=== PATIENT | male | born 1995 | race Hispanic/Latino ===

== ENCOUNTER 2020-04-08 07:26 | Day surgery (SDC) | payer OTHER ==
[2020-04-06 11:19] LABS: BASOPHILS % (AUTO) 0.6 % (0.0-5.0); EOSINOPHILS % (AUTO) 1.5 % (0.0-8.0); HEMATOCRIT 47.3 % (42-54); LYMPHOCYTES % (AUTO) 27.4 % (21.0-51.0); MEAN CORPUSCULAR HEMOGLOBIN 29.8 pg (27.0-33.0); MEAN CORPUSCULAR HGB CONC 34.2 g/dL (32.0-36.0); MEAN CORPUSCULAR VOLUME 87.1 fL (79-99); MONOCYTES % (AUTO) 6.4 % (3.0-13.0); NEUTROPHILS % (AUTO) 64.1 % (40.0-77.0); PLATELET COUNT (AUTO) 214 K/uL (130-400); RED BLOOD CELL COUNT(AUTO) 5.43 MIL/uL (4.50-6.20); RED CELL DISTRIBUTION WIDTH 12.2 % (11.0-15.5); WHITE BLOOD COUNT (AUTO) 6.9 K/uL (4.8-10.8)
[2020-04-06 11:37] LABS: CREATININE 1.2 mg/dL (0.5-1.5); POTASSIUM 4.1 mmol/L (3.5-5.1)
[2020-04-07 12:54] VITALS: BP 142/82
[~2020-04-08] VITALS: Ht 177.8 cm; Wt 125.0 kg
[2020-04-08] VITALS (16 sets, daily range): BP systolic 119–146; BP diastolic 60–99
[2020-04-08] MEDS ORDERED: LACTATED RINGERS 1000ML 1,000 ML IV SCH (08:00)
[2020-04-08] MEDS: CEFAZOLIN SODIUM 1 GM VIAL IVP ONE ×2 (08:03→09:50)
[2020-04-08] MEDS ORDERED: PROPOFOL 10 MG/ML 20ML VIAL IV ONE (09:03)
[2020-04-08] MEDS ORDERED: DEXAMETHASONE SOD PHOSPHATE 10MG/ML 1ML VIAL ONE (09:03)
[2020-04-08] MEDS ORDERED: LIDOCAINE PF 100MG/5ML (2%) SYRINGE 5ML ONE ×2 (09:03→11:39)
[2020-04-08] MEDS ORDERED: MIDAZOLAM HCL 1 MG/ML 2ML VIAL ONE (09:04)
[2020-04-08] MEDS ORDERED: ONDANSETRON 4MG INJ ONE (09:04)
[2020-04-08] MEDS ORDERED: MEPERIDINE-PF 25 MG/ML SYG ONE ×2 (09:04→12:08)
[2020-04-08] MEDS ORDERED: FENTANYL CITRATE PF 50 MCG/1 ML 2ML VIAL ONE ×3 (09:04→11:51)
[2020-04-08] MEDS ORDERED: SUCCINYLCHOLINE CHLORIDE 20 MG/ML 10 ML VIAL ONE (09:05)
[2020-04-08] MEDS ORDERED: ROPIVACAINE 0.5% 5MG/ML 30ML IJ ONE (09:19)
[2020-04-08] MEDS ORDERED: CEFAZOLIN SODIUM 1 GM VIAL ONE (09:45)
[2020-04-08] MEDS ORDERED: KETOROLAC 30MG VIAL (30MG/ML) ONE (11:40)
== END 2020-04-08 13:40 | disposition home or self-care (01) ==
LOC: DAH 07:26
PROVIDERS: ATTEND Orthopaedic Surgery
DX: Z20.828 Contact with and (suspected) exposure to other viral communicable diseases (principal); S83.512A Sprain of anterior cruciate ligament of left knee, initial encounter; S83.272A Complex tear of lateral meniscus, current injury, left knee, initial encounter; S83.242A Other tear of medial meniscus, current injury, left knee, initial encounter; E66.9 Obesity, unspecified; F17.200 Nicotine dependence, unspecified, uncomplicated; Z72.89 Other problems related to lifestyle; Z98.890 Other specified postprocedural states; Z79.899 Other long term (current) drug therapy; Z68.33 Body mass index [BMI] 33.0-33.9, adult; X58.XXXA Exposure to other specified factors, initial encounter
CPT/HCPCS: 29888; 36415; 64447; 76942; 80048; 85025; A4215; A4216; A4221; A4222; A4223 ×2; A4606; A4649 ×5; A4663; A4930; A5120; A6223; A6260; C1713 ×2; J0330; J0690 ×2; J1100; J1885; J2001 ×2; J2175 ×2; J2250; J2405; J2704; J2795; J3010 ×3; J7120 ×2; U0003